=== PATIENT | female | born 1995 ===

== ENCOUNTER 2019-09-02 12:10 | Emergency (ER) | payer SELFPAY ==
--- NOTE | 2019-09-02 13:05 | ULT ---
US Pelvic Transvag W Doppler History: Pelvic pain. Comparison: None. Findings: Real-time grayscale, color, and spectral analysis of the pelvis performed transabdominal an d transvaginal approach. The uterus measures 11 x 7.2 x 7.4 cm with a intrauterine gestational sac with pole and yolk sa c present. No subchorionic hemorrhage. The heart rate detected at 179 bpm. The average ultrasound age is 9 weeks 6 day with estimated date of delivery March 31, 2020. Right corpus luteal cyst. Impression: Normal single viable intrauterine .
[2019-09-02 13:18] LABS: #Eosinphils 0.1 thou/uL (0.0-0.7); #Lymphocytes 2.1 thou/uL (1.20-3.40); #Monocytes 0.6 thou/uL (0.11-0.59); #Neutrophils 8.6 thou/uL (1.40-6.50); %Basophils 0.4 % (0.0-1.0); %Eosinophils 0.6 % (0.0-10.0); %Lymphocytes 18.4 % (21.0-51.0); %Monocytes 5.4 % (0.0-10.0); %Neutrophils 75.1 % (42.0-75.0); Hemoglobin 14.3 g/dL (12.0-16.0); Mean Corpuscular HGB CONC 35.2 g/dL (32.0-36.0); Mean Corpuscular Hemoglobin 32.3 pg (27.0-31.0); Mean Corpuscular Volume 91.8 fL (78.0-98.0); Mean Platelet Volume 7.8 fL (7.4-10.4); Platelet Count 309 thou/uL (130-400); RBC Distribution Width 10.9 % (11.5-14.5); Red Blood Cell (RBC) Count 4.44 mill/uL (4.20-5.40); White Blood Cell (WBC) Count 11.4 thou/uL (4.8-10.8)
[2019-09-02 14:06] LABS: Bacteria/HPF None Seen HPF (None Seen); Calcium Oxalate Crystals Rare HPF (None Seen); Squamous Epithelial 0-3 HPF (0-3); WBC/HPF None Seen HPF (0-3)
[2019-09-02 14:11] LABS: Bilirubin Negative (Negative); Blood, Urine Negative (Negative); Glucose, Urine (Dipstick) Negative (Negative); Leukocyte Trace (Negative); Nitrite Negative (Negative); Protein, Urine (Dipstick) Trace mg/dL (Neg-Trace); Urobilinogen 0.2 mg/dL (Less than 2)
[2019-09-02 14:13] LABS: Clarity Clear (Clear)
== END 2019-09-02 15:19 | disposition home or self-care (01) ==
LOC: ERS 12:10
DX: O99.89 Other specified diseases and conditions complicating pregnancy, childbirth and the puerperium (principal); R10.30 Lower abdominal pain, unspecified; Z3A.09 9 weeks gestation of pregnancy
CPT/HCPCS: 36415; 76856; 81003; 81015; 84702; 85025; 87086